=== PATIENT | male | born 1965 | race Caucasian/White ===

== ENCOUNTER 2017-12-22 09:47 | Outpatient (CLI) | payer OTHER, SELFPAY ==
[2017-12-22 11:13] LABS: HCT 44.3 % (40.0-50.0); HGB 15.5 g/dL (13.5-17.5); Mean Corpuscular Hemoglobin 30.8 pg (27.0-33.0); Mean Corpuscular Volume 87.9 fL (80-95); Mean Platelet Volume 10.6 fL (8.0-11.0); Platelet Count 257 x1000/uL (130-400); RBC 5.04 m/cumm (4.50-6.00); RBC Distribution Width 12.2 % (11.8-14.1); White Blood Cell Count 5.34 k/cumm (4.4-10.8)
[2017-12-22 11:47] LABS: Hemoglobin A1C 8.8 % (4.5-6.2)
[2017-12-22 11:49] LABS: Iron 81 ug/dL (50-175)
[2017-12-22 11:54] LABS: COMMENT (LAB VIEW ONLY) 61.74 mg/dL; Microalb ug/mg Crea 12.5 ug/mg Cr
[2017-12-22 12:04] LABS: ALT 41 U/L (12-78); AST 19 U/L (15-37); Albumin 3.8 g/dL (3.4-5.0); Alkaline Phosphatase 73 U/L (46-116); Anion Gap 4.9 mmol/L (3-11); BUN 18 mg/dL (7-18); Bilirubin, Total 0.4 mg/dL (0.2-1.0); CO2 33.1 mmol/L (21.0-32.0); CREATININE 1.01 mg/dL (0.70-1.30); Calcium 8.6 mg/dL (8.5-10.1); Chloride 99 mmol/L (98-107); Cholesterol 196 mg/dL (50-200); Ferritin 451 ng/mL (8-388); Glucose 265 mg/dL (70-100); HDL Cholesterol 47 mg/dL (40-60); LDL CHOLESTEROL 110 mg/dL (<100); Sodium 137 mmol/L (136-145); Total Protein 6.7 g/dL (6.4-8.2); Triglyceride 248 mg/dL (30-150)
== END 2017-12-22 10:07 ==
LOC: LBO 09:48 → LOS 10:46
PROVIDERS: PCP Family Medicine; Visit Provider Family Medicine
DX: E11.9 Type 2 diabetes mellitus without complications (principal); I10 Essential (primary) hypertension; R79.89 Other specified abnormal findings of blood chemistry; Z00.00 Encounter for general adult medical examination without abnormal findings
CPT/HCPCS: 36415; 80053; 80061; 83721; 85027; 82043; 82570; 82728; 83036; 83540

== ENCOUNTER 2018-05-19 11:00 | Outpatient (CLI) | payer OTHER, SELFPAY ==
--- NOTE | 2018-05-19 08:10 | W.PREOPHP ---
Assessment and Plan (1) Arthritis of right hip: Current visit: No Status: Chronic Plan: Patient had previously had x-rays of hip including mag marker in May 2017 therefore additional films were ordered at today's visit. Since patient is reliable historian skin examination was not done at today's visit, however cautioned patient to continue to examine anterior groin skin to make sure skin is without lesions, rash or irritation which would be cause to cancel surgery. Review of patient's chart shows patient's been taking glipizide since March 2018. Previous A1c from 12/2017 was 8.8 H, however repeat hemoglobin A1c from today's visit was 6.8 H. Educated patient and his of concern regarding his previous A1c due to risk of surgical complication including infection as well as overall elevated cardiac risk with uncontrolled diabetes, however since his A1c has lowered we will continue to proceed with surgery. Educated patient and his on surgery reviewing anatomy, surgical technique, recovery process, benefits and risks including but not limited to risk of infection, blood clot, damage to soft tissue/nerve/blood vessels with patient in detail. After discussion patient gives verbal understanding of risks and elects to continue to proceed with surgery. [place] which [place] approximately 6 weeks following surgery. Counseled patient he will likely be able to ride his motorcycle depending on his post-operative status but will be easily fatigued and need additional breaks. Patient and his had opportunity to have questions answered to their satisfaction. Patient will contact office if issues arise, he will be scheduled for right total hip replacement via anterior approach with Dr. Gooden on 05/23/18. Mr. Merritt is a 52-year-old male who presents to clinic with his , Fernanda, for preoperative visit for scheduled right total hip replacement via anterior approach with Dr. Gooden on 05/23/18. Patient describes a deep aching sensation on the anterior portion of the right hip with occasional shooting pain down the anterior aspect of his leg to his knee. Pain she reports waking up several times throughout the night due to pain elicited when rolling on his right hip. Pain is aggravated following long drives for work, when he goes to stand after sitting for prolonged time and when riding his motorcycle. He reports patient feels slightly unstable when he first with walking. Patient has previously received intra-articular injection under fluoroscopy 3 occasions (dates of injections - 06/09/17; 02/10/17; 05/08/15) which provided short-term pain relief. Patient is also been treating pain by taking ibuprofen especially at night which slightly alleviates his hip pain allowing him to fall asleep. Patient denies any injuries or falls. Patient denies any symptoms of numbness or tingling. Patient has continued to have pain which is affecting activities of daily life patient elected to proceed with scheduling right total hip replacement. Pertinent Surgical Information Patient reports he is anxious about surgery and anesthesia. He reports when he had tonsil/adenoids/uvula surgery a towel was placed over his face which reportedly caused him to pull out his IVs and get up from the table. Due to his history patient has concerns about objects being placed over his face during surgery. 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 Patient was seen by provider and educated to have pulled several muscles within his chest wall. Patient reports symptoms resolved within a few weeks and he has not experienced additional chest wall pain. Patient denies history of angina, left arm/jaw pain, dyspnea, dyspnea on exertion, orthopnea, and paroxysmal nocturnal dyspnea. He reports having a bleeding gastric ulcer approximately 3 years ago that has since been treated and fully resolved. Patient denies any current gastrointestinal symptoms. Denies past medical history of: stroke, cardiac issues, angina, asthma, COPD, current sleep apnea symptoms, renal issues, liver issues, hepatitis, gastrointestinal issues, current gastric ulcers, bleeding disorders, seizures, migraines, anxiety, depression, autoimmune disorders, thyroid issues Denies prior complications from surgery or anesthesia. Review of Systems Constitutional Denies fever(s), Denies frequent falls and Denies headache(s) Eyes Denies change in vision ENT Denies dental pain, Denies dizziness, Denies ear discharge, Denies headache(s), Denies epistaxis, Denies nasal congestion, Denies nasal discharge and Denies sore throat Cardiovascular Denies chest pain, Denies rapid heart rate, Denies irregular heart rhythm, Denies dyspnea, Denies dyspnea on exertion, Denies orthopnea, Denies paroxysmal nocturnal dyspnea and Denies slow heart rate Respiratory Denies cough, Denies excessive phlegm production, Denies dyspnea, Denies dyspnea on exertion and Denies wheezing Gastrointestinal Denies abdominal pain, Denies melena, Denies hematochezia, Denies constipation, Denies diarrhea, Denies nausea and Denies vomiting Genitourinary Denies hematuria, Denies dysuria and Denies urinary urgency Musculoskeletal Reports as per HPI, Denies numbness and Denies tingling Neurologic Denies dizziness, Denies frequent falls, Denies headache(s), Denies numbness and Denies tingling Psychiatric Denies anxiety and Denies depression Allergic/Immunologic Denies wheezing PFSH Medical History Low serum testosterone level (Chronic 09/17/14) Essential hypertension (Chronic 09/17/14) Hyperlipidemia (Chronic 07/16/09) Elevated ferritin level (Chronic 06/30/15) Diabetes mellitus (Chronic 09/17/14) Chronic gastric ulcer (Chronic 04/01/15) Arthritis of right hip (Chronic 12/04/14) Anemia Diabetes mellitus type 2 in obese Hypertension Low testosterone Surgical History Reconstruction Tonsillectomy and adenoidectomy Family History Mother Personal history of malignant neoplasm Father No problems noted. 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 Smoking/Tobacco Use Status: Never alcohol intake: current alcohol intake frequency: 0-2 drinks per day Alcohol type: hard liquor substance use type: does not use Meds Home Medications Medication Instructions Recorded Confirmed Type multivitamin [Daily Vitamin] 1 ea PO DAILY 09/17/14 05/19/18 History glipizide ER 10 mg tablet, 10 mg PO DAILY #90 tab 04/07/18 05/19/18 Rx extended release 24 hr hydrochlorothiazide 25 mg tablet 25 mg PO DAILY #90 tab 04/07/18 05/19/18 Rx lisinopril 10 mg tablet 5 mg PO DAILY #90 tab 04/07/18 05/19/18 Rx meloxicam 15 mg tablet 15 mg PO DAILY #90 tab 04/07/18 05/19/18 Rx metformin 500 mg PO BID 05/19/18 05/19/18 History Allergies Allergy/AdvReac Type Severity Reaction Status Date / Time No Known Allergies Allergy Unverified 05/19/18 14:43 Exam Const General: cooperative and no acute distress HENMS Head: normal to inspection, normocephalic and atraumatic Ears: external ears normal General nose exam: external nose normal and no nasal discharge Face and sinus: face symmetric Mouth: oral mucosae normal, lip normal, tongue normal and moist mucous membranes Teeth and gingiva: dentition normal Throat: tonsils absent Eyes General: appearance normal, both eyes and all related structures Pupils: PERRL EOM: EOM intact bilaterally Neck Neck: trachea midline Carotids: normal carotid upstroke Lymphatic: no lymphadenopathy noted Resp Effort & Inspection: normal respiratory effort and able to speak in complete sentences Auscultation: clear to auscultation bilaterally, no rales, no rhonchi and no wheezes Cardio Heart Sounds: S1 normal, S2 normal, no murmurs, no rubs and no other GI Palpation: soft, no hepatosplenomegaly and nontender Auscultation: normal bowel sounds Extrem Other: Right hip examination: No tenderness to palpation along greater trochanter. Active range of motion yields flexion of 80 degrees with external rotation noted beginning around 50 degrees of flexion. Passive range of motion yields internal rotation of a few degrees (less than 5), external rotation of approximately 20 degrees and abduction of 15 degrees. Slight discomfort is elicited with hip flexion, internal and external rotation. Patient is able to complete straight leg raise which elicits anterior groin pain. Results Labs : 05/19/18 10:45 05/19/18 10:45 Hemoglobin A1c 6.8 H
[2018-05-19 11:04] LABS: HCT 44.2 % (40.0-50.0); HGB 15.7 g/dL (13.5-17.5); Mean Corp. HGB Concentration 35.5 g/dL (32.0-36.0); Mean Corpuscular Hemoglobin 31.7 pg (27.0-33.0); Mean Corpuscular Volume 89.1 fL (80-95); Mean Platelet Volume 9.8 fL (8.0-11.0); Platelet Count 252 x1000/uL (130-400); RBC 4.96 m/cumm (4.50-6.00); RBC Distribution Width 12.1 % (11.8-14.1); White Blood Cell Count 5.42 k/cumm (4.4-10.8)
[2018-05-19 11:39] LABS: BUN 18 mg/dL (7-18); CREATININE 0.97 mg/dL (0.70-1.30); Calcium 9.1 mg/dL (8.5-10.1); Chloride 102 mmol/L (98-107); Glucose 126 mg/dL (70-100); Sodium 141 mmol/L (136-145)
[2018-05-19 11:43] LABS: Iron 103 ug/dL (50-175); Total Iron Binding Capacity 256 ug/dL (250-450); Transferrin Sat 40 % (20-55)
[2018-05-19 11:48] LABS: Hemoglobin A1C 6.8 % (4.5-6.2)
[2018-05-19 11:56] LABS: Ferritin 393 ng/mL (8-388)
== END 2018-05-19 11:20 ==
PROVIDERS: PCP Family Medicine; Visit Provider Student in an Organized Health Care Education/Training Program
DX: M25.551 Pain in right hip (principal); M16.11 Unilateral primary osteoarthritis, right hip; E11.9 Type 2 diabetes mellitus without complications; R79.89 Other specified abnormal findings of blood chemistry
CPT/HCPCS: 36415; 80048; 85027; 86850; 86900; 86901; NC; 82728; 83036; 83540; 83550

== ENCOUNTER 2018-05-23 09:38 | Inpatient (IN) | payer OTHER, SELFPAY ==
[2018-05-23] VITALS (11 sets, daily range): BP systolic 94–139; BP diastolic 63–96; PULSE 67–85; RESP 12–18; TEMP 36.5–37; O2SAT 93–99
[2018-05-23] MEDS: Lactated Ringers 1,000 ML 80 ML IV ×3 (10:50→20:32)
[2018-05-23] MEDS: Acetaminophen 500 MG TAB 1000 MG PO ×2 (11:08→19:30)
[2018-05-23] MEDS: Celecoxib 200 MG CAP 400 MG PO (11:09)
[2018-05-23] MEDS: oxyCODONE-CR 10 MG TABCR PO (11:10)
[2018-05-23] MEDS: Normal Saline 20 ML VIAL (14:30)
[2018-05-23] MEDS: Bupivacaine 0.25% Pres-Free 30 ML VIAL (14:30)
[2018-05-23] MEDS: Ketorolac 30 MG/ML VIAL (14:30)
--- NOTE | 2018-05-23 14:48 | DI.RAD_ITS ---
SYMPTOMS/DIAGNOSIS: ARTHRITIS, RIGHT HIP C-ARM FLUOROSCOPY, RIGHT HIP IN THE OR: Fluoroscopy Time: 51.5 sec Fluoroscopy was provided in the OR for Dr. Gooden. Hard copy images show placement of a right total hip prosthesis. The components appear well aligned.
--- NOTE | 2018-05-23 15:25 | DI.RAD_ITS ---
SYMPTOMS/DIAGNOSIS: POSTOP, RIGHT HIP ARTHROPLASTY PORTABLE PELVIS: The patient is status post placement of a right hip prosthesis. The components appear well aligned.
--- NOTE | 2018-05-23 17:32 | DSE_ITS ---
Date of service: 05/23/18 Time of Service: 17:30 DS: Diagnosis Discharge Diagnosis (1) Arthritis of right hip: Status: Chronic Discharge Plan Disposition Patient Disposition: HOME Condition: Good Discharge Details Reason For Visit: R Hip OA Admit Date/Time: 05/23/18 09:38 Admit Provider: Nestor Gooden Attending Provider: Nestor Gooden Primary Care Provider: Enedina Mcneil [place] [facility] Course Hospital Course: Patient was admitted to the medical/surgical floor following the procedure. It was tolerated well without any notable medical, surgical, or anesthetic complications. Mobilization began postoperatively. The peraza catheter was removed and voiding spontaneously. Vitals were stable. He was able to ambulate with minimal assistance and ascend/descend stairs. No acute medical issues. Home Meds and New Rx's Prescriptions: New pantoprazole 40 mg tablet,delayed release (DR/EC) 40 mg PO DAILY Qty: 30 RF: 0 ibuprofen 600 mg tablet 600 mg PO TID PRNQty: 90 RF: 3 acetaminophen 500 mg capsule 500 mg PO Q6H PRN PRN (Reason: pain) Qty: 60 RF: 3 hydrocodone-acetaminophen 7.5-325 mg tablet 1 tab PO Q4H MDD 45mg PRN (Reason: pain) Qty: 14 RF: 0 aspirin 81 mg tablet,delayed release (DR/EC) 81 mg PO BID Qty: 60 RF: 0 Continued multivitamin [Daily Vitamin] 1 EACH tablet 1 ea PO DAILY RF: 0 glipizide 10 mg tablet extended release 24hr 10 mg PO DAILY Qty: 90 RF: 5 hydrochlorothiazide 25 mg tablet 25 mg PO DAILY Qty: 90 RF: 5 lisinopril 10 mg tablet 5 mg PO DAILY Qty: 90 RF: 5 metformin 500 mg tablet 500 mg PO BID RF: 0 Discontinued meloxicam 15 mg tablet 15 mg PO DAILY Qty: 90 RF: 5 ibuprofen 200 mg Tablet 400 RF: 0 Discharge Instructions Additional Instructions: Dr. Gooden?s Total Hip Discharge Instructions Activity: The most important activity is to walk. You should try to take short walks a few times a day. You have no restrictions on movement or positioning, but do not try to force what you do. You will find some stiffness and weakness with hip flexion (lifting your knee). Do not try to strengthen this too early, continue to practice walking and stairs and this will come. - Outpatient physical therapy can be helpful to help return you to a normal gait and improve your flexibility and strength. This can start around 2 weeks. For some patients, it?s not necessary. Usually this is determined at the time of discharge or at the first post-operative visit. - You should wear the SHAILESH hose on both legs for 4 weeks. Dressing: Keep the surgical dressing in place for at least one week. After the first week it may be removed and replace with light gauze and tape or nothing. It may get wet after 3 days but avoid soaking the dressing. If it gets wet, just lightly pat dry. It is important to always keep some gauze between skin folds, especially when you are sitting. Spend some time with the wound exposed when you are lying flat as the incision does wrinkle onto itself. Medications: - You should take Tylenol and an anti-inflammatory ibuprofen as your primary pain control medications - You have been prescribed a stronger pain medication hydrocodone for breakthrough pain, take as needed as prescribed. - You have also been prescribed a stomach acid reduction agent Pantoprozole to help reduce stomach acid and reflux. - You will be taking aspirin 81mg twice a day for DVT prevention unless instructed otherwise. - If you have constipation you should take Colace or Miralax (both over-the- counter). It takes most people 3-4 days to have a bowel movement. Follow-up: 2 weeks Referrals: Nestor Gooden MD [ [facility] STAFF PHYSICIAN] - Activity:: Activity as Tolerated Equipment/Supplies:: Walker Diet:: As Tolerated Discharge Orders Discharge Orders: Discharge Order (Routine); Ordered 05/23/18 Ordered By: Nestor Gooden DS: Data Vitals/I&O Vitals and I&O: Vital Signs Temperature 36.6 C 05/23/18 16:30 Pulse 71 05/23/18 16:30 Pulse Rhythm Regular 05/23/18 17:20 Respiratory Rate 18 05/23/18 16:30 Respiratory Effort 05/23/18 17:20 Respiratory Depth Normal 05/23/18 17:20 Respiratory Pattern Normal 05/23/18 17:20 Blood Pressure 130/74 05/23/18 16:30 Pulse Oximetry 99 05/23/18 16:30 Respiratory End-tidal CO2 35 05/23/18 16:30 Oxygen Delivery Method Room Air 05/23/18 16:30 Oxygen Flow Rate 0 05/23/18 10:29 Pain Level 0 05/23/18 16:30 Intake & Output 05/22/18 05/23/18 05/23/18 23:59 11:59 23:59 Intake Total 2069 Output Total 550 / 550 Balance 1520 / 1520 Weight 112.7 kg Intake: IV 2069 Output: Urine 150 / 150 Estimated Blood Loss 400 / 400 Other: Urine Color Yellow Urine Appearance Clear Emesis Description None PFSH Medical History Low serum testosterone level (Chronic 09/17/14) Essential hypertension (Chronic 09/17/14) Hyperlipidemia (Chronic 07/16/09) Elevated ferritin level (Chronic 06/30/15) Diabetes mellitus (Chronic 09/17/14) Chronic gastric ulcer (Chronic 04/01/15) Arthritis of right hip (Chronic 12/04/14) Anemia Diabetes mellitus type 2 in obese Hypertension Low testosterone Surgical History Reconstruction Tonsillectomy and adenoidectomy Family History Mother Personal history of malignant neoplasm Father No problems noted. 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
--- NOTE | 2018-05-23 17:51 | PDOC.CMPRO ---
Care Management Progress Note Dr. Gooden requested CM fill prescription for FWW through [facility]. CM provided FWW to patient and notified Armin that [facility] would be billing his insurance [id number]. Armin signed patient consent/acknowledgement form. CM faxed information to [facility]. No initial assessment of patient completed due to length of stay.
[2018-05-23] MEDS: Celecoxib 100 MG CAP 200 MG PO (19:30)
[2018-05-23] MEDS: Aspirin E.C. 325 MG TABEC 81 MG PO (19:30)
--- NOTE | 2018-05-23 21:39 | ROE_ITS ---
Date of service: 05/23/18 Time of Service: 15:36 Operative Note DATE OF PROCEDURE: 05/23/18 PRE-OP DIAGNOSIS: Right Hip Osteoarthritis POST-OP DIAGNOSIS: same PROCEDURE: Right Anterior Total Hip Arthroplasty SURGEON: Nestor Gooden BOTTLE ASSEMBLER: Miguel Marinelli ANESTHESIA: spinal ESTIMATED BLOOD LOSS: 400 PATHOLOGY: none sent COMPLICATIONS: None Patient was transported to: PACU Patient's condition: stable Implants: 1. Depuy Hamilton Acetabular Component, 54 mm 2. Depuy Acetabular Liner, 54 x 36 mm 3. Depuy Actis femoral Stem, Size 7 4. Depuy Altrx Ceramic Femoral Head, Size 36+1.5 mm Indications: I have seen Armin in clinic for symptoms of hip arthritis, confirmed with radiographic findings. He has exhausted nonoperative methods and was having significant limitations in daily function and desired better function and less pain. I discussed the technical details of a hip replacement. I explained the risks of the procedure to include, but not limited to, bleeding, infection, pain, stiffness, fracture, damage to nerves and vessels, damage to muscles and tendons, loosening, instability, leg length inequality, need for repeat procedure, blood clot and cardiopulmonary demise. Despite these risks, Armin elected to proceed. Findings: There was significant signs of arthritis throughout the hip. There is notable arthritic changes seen on the femoral head and within the acetabulum with large floor osteophyte. Procedure Description: Armin was greeted in the preoperative holding area where the correct side was identified and marked. The consent was reviewed with the patient and signed. The history and physical was updated. All questions were answered. Amrin was taken back to the operating room. A spinal anesthestic was then administered. The patient was placed into the supine position on the operating room table. The patient was then positioned onto the ARCH table. Both feet were wrapped with Webrill cotton wrap along with Coban. The feet were placed in specialized boots for the ARCH table, well seated within the boot and secured. SCDs were applied. The patient was then slid down onto a peroneal post and the nonoperative leg was secured in a leg edward attached to the table. The operative side was placed into the ARCH table attachment and bed height and positioning was secured. A preoperative AP pelvis was obtained to serve as a reference for determining leg lengths. Prophylactic antibiotics in the form of cefazolin were administered. 1g of Tranxemic Acid was given intravenously within 30 minutes of incision. The right leg was then prepped with Chloraprep and draped in a standard fashion with a large shower-curtain type drape with Iodine impregnated skin protection. A timeout to confirm correct identity, side and site, procedure, allergies, anesthesia, and medical concerns was performed. An obliquely oriented incision was made starting lateral to the ASIS and running distal over the Tensor Fascia Sapna (TFL) muscle belly toward the fibular head, approximately 10cm. The skin and soft tissue was dissected sharply, through Kendal?s fascia, and to the fascia of the TFL. With the fascia and superior border of the IT band identified, the fascia was incised with a new knife just above any perforators from the IT band. The TFL muscle belly was bluntly dissected away from the fascia and moved laterally. The fat between TFL and rectus was identified to ensure the dissection was not within the TFL. Blunt dissection created space between abductors and the capsule and retractor was placed over the lateral femoral neck. The fibers of the rectus femoris tendon were identified and these were freed from the anterior capsule. A second cobra retractor was placed around the medial femoral neck. The TFL was further retracted laterally to show the deep fascia. Careful dissection through this layer identified three main crossing vessels of the lateral femoral circumflex. These were cauterized in multiple locations and then cut without any noticeable bleeding. The TFL was further released bluntly from the deep fascia to expose anterior hip capsule and fat the Perez orthopaedic retractor was then placed beneath the TFL and against sartorius and medial soft tissues to protect and retract the soft tissues. A T-capsulotomy was then performed starting at the superior lateral acetabulum and moving distally to the intertrochanteric ridge. These capsular flaps were tagged with a No. 1 Ethibond and elevated from within. The capsular flaps were released to the shoulder of the lateral neck and to the lesser trochanter to give excellent visualization of the proximal femur. A neck osteotomy was performed using an oscillating saw based on preoperative templates. This cut started in the shoulder and of the lateral neck and exited medially. The saw was at all times directed medially to avoid injury to the greater trochanter. 6cm of traction was applied to the leg and the osteotomy opened. The femoral head was removed with a corkscrew, making sure to protect the TFL on its exit. This was measured on the back table to determing the starting reamer size. Portions of the rectus obscuring visualization were minimally elevated off the superior acetabulum. An anterior retractor was placed over the anterior wall between capsule and labrum. A posterior retractor was placed similarly. This provided excellent visualization. The contents of the cotyloid fossa were removed with electrocautery and the labrum was removed with a knife. There was a notable floor osteophyte. There was significant chondromalacia of the superior acetabulum. Acetabular reaming began with a 51 mm reamer. This first reaming was directed anterior to posterior and medial to get down to the true floor. This was inspected and reamed until the true floor was reached. I then reamed sequentially up to a 54 mm reamer where good fit was obtained. The larger reamers were oriented based on anatomical reference of the anterior and lateral stevens to ensure proper abduction and anteversion. Positioning and size was confirmed with the fluoroscopy. A 54 mm Depuy Hamilton acetabular component was selected. The deep tissues were irrigated. The acetabular component was then impacted in a position of about 40-45 degrees of abduction and 15-20 degrees of anteversion, using the patient?s anatomy as the ultimate landmark. Fluoroscopy was used to confirm this. There was excellent hide and skin processing worker of the acetabular component and the inserting handle was removed. The acetabular liner, Depuy 54 x 36 mm polyethylene liner, was inserted and lined up with the tines of the acetabular component. There was no soft tissue interposition. The liner was then impacted into position and confirmed to be well-seated. A portion of the ca-articular cocktail was then injected around the acetabulum into the capsule and periosteum. This cocktail consisted of 50cc of 0.25% Bupivicaine and 20cc of Exparel, expanded to a total of 120cc. Traction was released from the femur. The leg was rotated to 120 degrees. Any remaining medial capsule was released until the lesser trochanter was easily palpable. A Guerra retractor was placed medially. The lateral capsule was further released into the shoulder to allow access to the greater trochanter. A Guerra retractor was placed over the greater trochanter which allowed the trochanter to flip in front of the capsule for excellent exposure. The leg was brought down into maximal extension and 20 degrees of adduction while ensuring there was no impingement on the acetabulum. Any remnant capsule within the trochanter was released. Piriformis and obturator externis were identified and protected. There was excellent access to the proximal femur. The lateral neck remnant was removed with a rongeur. A blunt canal probe was used to identify the canal and trajectory for later broaching. A box osteotome initiated the broach course. A small curved rasp and a curved curette were used to work laterally. Broaching then began with the small Actis broach. This was inserted manually hugging the medial calcar into the canal before mallet blows. The broach was seated to a few millimeters below the cut level based on the neck cut and the preoperative template. Sequential broaching was continued until a tight fit was obtained with good rotational control of the femur. A trial standard neck was inserted along with a +5 trial head. The leg was brought out of extension and adduction and then reduced with traction and internal rotation. The leg was stable anteriorly in a position of 30 degrees of extension and 90 degrees of external rotation. Fluoroscopy was used to ensure there was no fracture and the stem was seated well. Leg lengths were checked with an AP pelvis and pelvic reference points. Once content with the desired offset and leg lengths, the leg was brought back into extension, external rotation and adduction. The periosteum and surrounding tissue was injected with remaining portion of the ca-articular cocktail. The proximal femur was irrigated as well as the deep tissues. The Depuy Actis standard stem, size 7, was then manually inserted into the proximal femur making sure to control rotation. It was then malleted into position with light blows, giving breaks to allow bone expansion and decrease risk of fracture. The selected Depuy Altrx Ceramic Head, size 36+1.5 mm, was then placed onto the clean and dry trunnion and secured with impaction onto the tapered fit. The leg was brought back out of extension and adduction and reduced with traction and internal rotation. Stability was confirmed with no shuck at 90 degrees of external rotation and 30 degrees of extension. No impingement through range of motion arc. Final x-ray images were obtained with fluoroscopy to confirm adequate positioning and no intraoperative fracture. The deep tissues were thoroughly irrigated with a pulse lavage. The second dose of TXA 1g was administered intravenously. The capsule was then reapproximated with the previously placed Ethibond sutures. The TFL fascia was finally closed with a No. 2 Stratafix, barbed suture. Deep tissues were then reapproximated with 0 Vicryl and a running 2-0 Vicryl. The skin was closed with a running 4-0 Monocryl in a subcuticular fashion. This was reinforced with skin glue. A Mepilex silver dressing was applied. At the end of the case, all counts were correct. Armin was transferred to the hospital bed without difficulty and suffering no apparent complication. Armin has a good prognosis. Physical therapy will start today and without restrictions, weight-bearing as tolerated. Aspirin 81mg BID will be used for DVT prophylaxis.
[2018-05-23] MEDS: HYDROmorphone 2 MG/ML VIAL 0.5 MG IVP (21:50)
[2018-05-24 03:57] VITALS: BP 132/83; PULSE 80; RESP 17; TEMP 36.6; O2SAT 98
[2018-05-24] MEDS: Celecoxib 100 MG CAP 200 MG PO (08:10)
[2018-05-24] MEDS: Aspirin E.C. 81 MG TABEC PO (08:10)
[2018-05-24] MEDS: Hydrochlorothiazide 25 MG TAB PO (08:11)
[2018-05-24] MEDS: Acetaminophen 500 MG TAB 1000 MG PO (08:11)
[2018-05-24] MEDS: Multivitamin TAB 1 TAB PO (08:12)
[2018-05-24] MEDS: Lisinopril 10 MG TAB 5 MG PO (08:12)
[2018-05-24] MEDS: Pantoprazole 40 MG TABCR PO (08:12)
[2018-05-24] MEDS: metFORMIN 500 MG TAB PO (08:12)
[2018-05-24 08:22] VITALS: BP 117/69; PULSE 85; RESP 20; TEMP 36.5; O2SAT 95
--- NOTE | 2018-05-24 12:38 | IN_ITS ---
Date of service: 05/24/18 Time of Service: 08:00 PT Notes Inpatient Physical Therapy Evaluation Date: 05/24/18 Referring Doctor: Dr. Gooden PT Orders: PT CONSULT: s/p anterior JOHN right Precautions: standard Patient Profile/Admitting Diagnosis: Patient admitted 1 day status post right anterior JOHN. PMHX: Hypertension, hyperlipidemia, diabetes, chronic gastric ulcer, anemia Social History/Home Situation: Patient lives in [place] with his . He has 5 steps to enter the home. 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 Equipment Owned/DME: None Subjective: Patient states that he is feeling well. He plans to return home directly after his PT session. He states that he was able to do some walking with Dr. Gooden yesterday, and states that he is not concerned about his ability to get around. He has questions about damaging his prosthesis, home exercises, etc. Objective: General Observation: Patient walking about his room independently at initiation of session. No lines. His is present during evaluation. Mental Status: A and O x3 Pain: Patient reports soreness through the groin and anterior thigh ROM: Right Upper Extremity: WFL Left Upper Extremity: WFL Right Lower Extremity: Hip flexion functionally allows 90 degrees. Knee motion functionally allows 0-100. Ankle dorsiflexion is WFL Left Lower Extremity: WFL Strength: Right Upper Extremity: Grossly 5/5 Left Upper Extremity: Grossly 5/5 Right Lower Extremity: Quads 3/5 or greater. Ankle dorsiflexion 3/5 or greater. Left Lower Extremity: Grossly 5/5 Sensation: Intact distally Bed Mobility/Transfers: Supine to sit: Independent sit to supine: Independent Sit to stand: Independent Stand to sit: Independent Gait: Patient ambulates 100 feet x2 without assistive device and with supervision only. He demonstrates moderate antalgia initially, with decreased stance time on the right lower extremity and contralateral trunk lean during right stance, however with distance he demonstrates a normalized gait pattern with only mild antalgia. He received gait training for utilization of FW W which she was encouraged to keep at bedside for initiation of gait first thing in the morning and during the night. Stairs: Patient is able to a send and descend therapeutic stairs, 6 inches x2, 4 inches x3 with unilateral upper extremity support to rail and supervision only. He performs with a reciprocal pattern. Balance: Static Sitting: Normal Dynamic Sitting: Normal Static Standing: Normal Dynamic Standing: Good Informed Consent/Education: Patient instructed in purpose of PT consult and plan of care. Patient received gait training, and was instructed in home exercise program, with exercise as indicated in his take home packet. He was instructed in antiembolic exercises, long arc quads and supine hip abduction. He was also advised that he can contact our clinic with any questions or concerns in upcoming weeks. Assessment: Patient is a 52 year old male referred to physical therapy services with the diagnosis of 1 day status post right anterior JOHN. Patient presents with clinical signs and symptoms consistent with postoperative status, as demonstrated by the following impairment level findings: 1. Decreased range of motion right lower extremity 2. Decreased strength right lower extremity 3. Gait impairments Impairments are contributing to the following functional limitations: 1. Gait impairments 2. Decreased activity tolerance Patient is assessed as Low [id number] complexity based on the following: History: 52-year-old male, 1 day status post right anterior JOHN, with multiple medical comorbidities Examination: Functional limitations as noted above Presentation: Stable Decision Making: Low complexity Plan of Care/Treatment Plan: No further PT intervention warranted in acute care setting. Patient is safe for transition back home. DISCHARGE RECOMMENDATIONS: Home with FW W TREATMENT CODE/TIME: 25 minutes ([id number])
== END 2018-05-24 08:58 | disposition home or self-care (01) | DRG 470 ==
LOC: PDS 09:39 → MS 16:58
PROVIDERS: Admitting Provider Student in an Organized Health Care Education/Training Program; PCP Family Medicine; Visit Provider Student in an Organized Health Care Education/Training Program
PROC: 0SR904A Replacement of Right Hip Joint with Ceramic on Polyethylene Synthetic Substitute, Uncemented, Open Approach (ICD-10-PCS; CPT 27130; principal; 2018-05-23 11:15)
DX: M16.11 Unilateral primary osteoarthritis, right hip (principal); Z96.641 Presence of right artificial hip joint; E11.9 Type 2 diabetes mellitus without complications; I10 Essential (primary) hypertension; E78.5 Hyperlipidemia, unspecified
CPT/HCPCS: 27130; 97161; NC; 72170; 73501; J0690; J1100; J1885; J2250; J2405; J3010

== ENCOUNTER 2018-06-07 10:30 | Outpatient (CLI) | payer OTHER, SELFPAY ==
--- NOTE | 2018-06-07 10:28 | DI.RAD_ITS ---
SYMPTOM/DIAGNOSIS: F/U RT JOHN RIGHT HIP: Two views. Comparison is made with 05/23/18. There are again seen post surgical changes of a right total hip replacement. There is no evidence of hardware failure. The bones are intact. The soft tissues are unremarkable. Degenerative changes are seen in the left hip. IMPRESSION: Stable right THR.
== END 2018-06-07 10:50 ==
PROVIDERS: PCP Family Medicine; Visit Provider Student in an Organized Health Care Education/Training Program
DX: M16.11 Unilateral primary osteoarthritis, right hip (principal); Z96.641 Presence of right artificial hip joint; Z47.1 Aftercare following joint replacement surgery
CPT/HCPCS: 73502

== ENCOUNTER 2019-05-15 08:37 | Outpatient (CLI) | payer OTHER, SELFPAY ==
[2019-05-15 11:09] LABS: Iron 114 ug/dL (65-175)
[2019-05-15 11:23] LABS: ALT 34 U/L (16-63); AST 15 U/L (15-37); Albumin 3.9 g/dL (3.4-5.0); Alkaline Phosphatase 63 U/L (46-116); BUN 16 mg/dL (7-18); Bilirubin, Total 0.5 mg/dL (0.2-1.0); CREATININE 0.88 mg/dL (0.70-1.30); Calcium 8.1 mg/dL (8.5-10.1); Calculated LDL 118 mg/dL (<100); Chloride 101 mmol/L (98-107); Cholesterol 187 mg/dL (<200); Ferritin 395 ng/mL (26-388); Glucose 217 mg/dL (74-106); HDL Cholesterol 50 mg/dL (40-60); Potassium 3.6 mmol/L (3.5-5.1); Sodium 140 mmol/L (136-145); Total Protein 6.7 g/dL (6.4-8.2); Triglyceride 98 mg/dL (<150)
[2019-05-15 11:39] LABS: HCT 43.7 % (40.0-50.0); HGB 15.3 g/dL (13.5-17.5); Hemoglobin A1C 6.7 % (3.8-5.6); Mean Corpuscular Hemoglobin 31.5 pg (27.0-33.0); Mean Corpuscular Volume 89.9 fL (80-95); Mean Platelet Volume 10.6 fL (8.0-11.0); Platelet Count 240 x1000/uL (130-400); RBC 4.86 m/cumm (4.50-6.00); RBC Distribution Width 12.2 % (11.8-14.1); White Blood Cell Count 3.99 k/cumm (4.4-10.8)
== END 2019-05-15 08:57 ==
PROVIDERS: PCP Family Medicine; Visit Provider Family Medicine
DX: Z00.00 Encounter for general adult medical examination without abnormal findings (principal); E78.5 Hyperlipidemia, unspecified; E11.9 Type 2 diabetes mellitus without complications; R79.89 Other specified abnormal findings of blood chemistry
CPT/HCPCS: 36415; 80053; 80061; 85027; 82728; 83036; 83540

== ENCOUNTER 2019-05-25 08:27 | Outpatient (CLI) | payer OTHER, SELFPAY ==
--- NOTE | 2019-05-25 08:22 | DI.RAD_ITS ---
EXAM: XR HIP RT AP LAT ONLY CLINICAL HISTORY: annual f/u TECHNIQUE: COMPARISON: No exams were available for comparison FINDINGS: two views were obtained and show total hip joint replacement in position. Components appear well sea sabrina. No interval change in alignment comparison with examination of May 2018. IMPRESSION:
== END 2019-05-25 08:47 ==
PROVIDERS: PCP Family Medicine; Visit Provider Student in an Organized Health Care Education/Training Program
DX: Z96.641 Presence of right artificial hip joint (principal); Z47.1 Aftercare following joint replacement surgery
CPT/HCPCS: 73502

== ENCOUNTER 2020-04-03 10:37 | Outpatient (CLI) | payer OTHER, SELFPAY ==
--- NOTE | 2020-04-03 11:46 | DI.RAD_ITS ---
EXAM: XR SACRUM COCCYX CLINICAL HISTORY: tailbone injury, [id number]. TECHNIQUE: 2D digital imaging was performed. COMPARISON: No exams were available for comparison FINDINGS: There is no evidence of sacral fracture.. No obvious coccyx fracture. No presacral mass to suggest obvious hematoma. Right hip prosthesis noted. Sacroiliac joints appear unremarkable. IMPRESSION: No sacral or coccyx fracture evident. DATA REPOSITORY: RADIATION DOSE DELIVERED:
== END 2020-04-03 10:57 ==
PROVIDERS: PCP Family Medicine; Visit Provider Family Medicine
DX: S39.92XA Unspecified injury of lower back, initial encounter (principal); M54.5 Low back pain
CPT/HCPCS: 72220

== ENCOUNTER 2021-12-31 04:00 | Outpatient (CLI) | payer OTHER, SELFPAY ==
[2021-12-31 12:37] LABS: ALT 44 U/L (16-63); AST 21 U/L (15-37); Albumin 3.8 g/dL (3.4-5.0); Alkaline Phosphatase 57 U/L (46-116); Anion Gap 8.2 mmol/L (3-11); BUN 16 mg/dL (7-18); Bilirubin, Total 0.6 mg/dL (0.2-1.0); CO2 29.8 mmol/L (21.0-32.0); CREATININE 0.9 mg/dL (0.70-1.30); Calcium 8.7 mg/dL (8.5-10.1); Calculated LDL 101 mg/dL (<100); Chloride 102 mmol/L (98-107); Cholesterol 177 mg/dL (<200); Estimated GFR 99.62 (mL/min/1.73m2); Glucose 204 mg/dL (74-106); HDL Cholesterol 53 mg/dL (40-60); Potassium 3.7 mmol/L (3.5-5.1); Sodium 140 mmol/L (136-145); Total Protein 6.9 g/dL (6.4-8.2); Triglyceride 118 mg/dL (<150)
[2021-12-31 12:48] LABS: Hemoglobin A1C 7.8 % (<5.7)
[2022-01-01 09:31] LABS: Iron 105 ug/dL (65-175)
== END 2021-12-31 04:01 | disposition home or self-care (01) ==
PROVIDERS: PCP Family Medicine; Visit Provider Family Medicine
DX: E11.9 Type 2 diabetes mellitus without complications (principal); E78.5 Hyperlipidemia, unspecified; I10 Essential (primary) hypertension; R79.89 Other specified abnormal findings of blood chemistry
CPT/HCPCS: 36415; 80053; 80061; 82728; 83036; 83540

== ENCOUNTER 2022-01-18 12:23 | Outpatient (REF) | payer OTHER, SELFPAY ==
[2022-01-18 14:06] LABS: COMMENT (LAB VIEW ONLY) 45.06 mg/dL; Microalb ug/mg Crea 61.3 ug/mg Cr
== END 2022-01-18 12:24 | disposition home or self-care (01) ==
LOC: LBN 12:23
PROVIDERS: PCP Family Medicine; Visit Provider Family Medicine
DX: E11.9 Type 2 diabetes mellitus without complications (principal)
CPT/HCPCS: 82043; 82570

== ENCOUNTER 2024-09-17 15:54 | Outpatient (REF) | payer OTHER, SELFPAY ==
[2024-09-17 12:38] LABS: HCT 44.4 % (40.0-50.0); HGB 16.1 g/dL (13.5-17.5); MCH 32.2 pg (27.0-33.0); MCHC 36.3 % (32.0-36.0); MCV 89 fL (80-95); MPV 10.5 fL (8.0-11.0); Platelet Count 258 10^3/uL (130-400); RDW 11.3 % (11.8-14.1); RDW-SD 36.2 fL; WBC 5.75 10^3/uL (4.4-10.8)
[2024-09-17 13:03] LABS: Microalb ug/mg Crea 58.4 ug/mg Cr
[2024-09-17 13:17] LABS: ALT 40 U/L (16-63); AST 18 U/L (15-37); Albumin 4.2 g/dL (3.4-5.0); Alkaline Phosphatase 72 U/L (46-116); Anion Gap 5.8 mmol/L (3-11); BUN 16 mg/dL (7-18); Bilirubin, Total 0.6 mg/dL (0.2-1.0); CO2 35.2 mmol/L (21.0-32.0); CREATININE 0.8 mg/dL (0.70-1.30); Calcium 9.4 mg/dL (8.5-10.1); Calculated LDL 113 mg/dL (<100); Chloride 99 mmol/L (98-107); Cholesterol 191 mg/dL (<200); Estimated GFR 101.32 (mL/min/1.73m2); Glucose 286 mg/dL (74-106); HDL Cholesterol 58 mg/dL (>or=40); Potassium 4.4 mmol/L (3.5-5.1); Sodium 140 mmol/L (136-145); Total Protein 7.2 g/dL (6.4-8.2); Triglyceride 100 mg/dL (<150); Vitamin B12 447 pg/mL (193-986)
[2024-09-18 02:10] LABS: PSA, Screening 0.5 ng/mL (<=4.5)
== END 2024-09-17 15:55 | disposition home or self-care (01) ==
LOC: LBN 15:54
PROVIDERS: PCP Family Medicine; Visit Provider Family Medicine
DX: E11.9 Type 2 diabetes mellitus without complications (principal); Z00.00 Encounter for general adult medical examination without abnormal findings; D75.1 Secondary polycythemia; I10 Essential (primary) hypertension; Z12.5 Encounter for screening for malignant neoplasm of prostate
CPT/HCPCS: 80053; 80061; 84153; 85027; 82043; 82570; 82607